=== PATIENT | male | born 1970 | race Two or more races ===

== ENCOUNTER 2025-05-01 08:34 | Outpatient (CLI) | payer OTHER ==
[2025-05-01 10:08] LABS: BASO % 1.3 % (0.1-1.2); EOS # 0.08 (0.04-0.54); EOS % 2.1 % (0.7-7.0); LYMPH # 1.68 (1.18-3.74); LYMPH % 43.8 % (19.3-53.1); MEAN PLATELET VOLUME 9.90 fl (9.4-12.4); MONO # 0.27 (0.24-0.82); MONO % 7.0 % (4.7-12.5); NEUT # 1.75 (1.56-6.13); NEUT % 45.5 % (34.0-71.1); RED CELL DISTRIBUTION WIDTH 12.4 % (11.6-14.4)
[2025-05-01 10:13] LABS: URINE APPEARANCE Clear; URINE BILIRRUBIN Negative (NEGATIVE); URINE BLOOD Negative; URINE COLOR Yellow; URINE GLUCOSE Negative (NEGATIVE); URINE KETONE Negative (NEGATIVE); URINE LEUKOCYTE Negative; URINE NITRATE Negative; URINE PROTEIN Negative (NEGATIVE); URINE UROBILINOGEN 0.2 E.U./dl
[2025-05-01 10:14] LABS: URINE BACTERIA 15.5 uL (0.0-1933); URINE EPITHELIAL CELLS 8.4 uL (0.0-38.8); URINE RBC 2.9 uL (0.0-20.8); URINE WBC 3.8 uL (0.0-23.2)
[2025-05-01 10:15] LABS: ERYTHROCYTE SEDIMENTATION RATE 38 mm/hr (0-20)
[2025-05-01 10:22] LABS: CREATININE URINE RANDOM 119.0 MG/DL (30-125)
[2025-05-01 10:24] LABS: ob NEGATIVE (NEGATIVE)
[2025-05-01 10:36] LABS: INR 1.01
[2025-05-01 10:50] LABS: URINE CAST 0.14 uL (0.0-1.40)
[2025-05-01 11:23] LABS: ALT/SGPT 23.0 U/L (12-78); AST/SGOT 11.0 U/L (15-37); BILIRUBIN TOTAL 0.59 mg/dL (0.3-1.2); BILIRUBIN,CONJUGATED 0.13 mg/dL (0.0-0.2); BUN CREA RATIO 14.0 (7.0-25.0); CREATININE SERUM 1.06 mg/dL (0.70-1.30); FREE TRIODOTIRONINE 2.57 pg/ml (2.18-3.98); GFR 72.27; GLOBULINA 3.9 G/DL (2.4-3.5); GLUCOSE FASTING 115.0 mg/dL (65-100); HDL 30.0 mg/dl (40-60); OSMOLALITY SERUM 279.0 MOSM/KG (275-295); PROSTATIC SPECIFIC ANTIGEN 0.954 NG/ML (0.010-4.00); T4 FREE 1.31 NG/ML (0.76-1.46)
[2025-05-01 11:26] LABS: CHOL HDL RATIO 9.1 (0-5.0); LDL 184.0 mg/dl (0-130); TSH 0.695 uIU/mL (0.358-3.74); VLDL 59.0 (0-39)
== END 2025-05-01 09:30 | disposition home or self-care (01) ==
LOC: LAB 08:34
PROVIDERS: ATTEND Specialist
DX: D12.6 Benign neoplasm of colon, unspecified (principal); E03.9 Hypothyroidism, unspecified; E11.21 Type 2 diabetes mellitus with diabetic nephropathy; N39.0 Urinary tract infection, site not specified; N40.1 Benign prostatic hyperplasia with lower urinary tract symptoms; E78.2 Mixed hyperlipidemia; E11.65 Type 2 diabetes mellitus with hyperglycemia; Z12.11 Encounter for screening for malignant neoplasm of colon; D64.9 Anemia, unspecified; J45.998 Other asthma; D68.8 Other specified coagulation defects; K75.81 Nonalcoholic steatohepatitis (NASH); N25.81 Secondary hyperparathyroidism of renal origin; I25.810 Atherosclerosis of coronary artery bypass graft(s) without angina pectoris; E55.9 Vitamin D deficiency, unspecified